=== PATIENT | female | born 1985 | race Caucasian/White ===

== ENCOUNTER → 2018-01-05 | Outpatient (CLI) | payer BC, OTHER ==
--- NOTE | 2018-01-05 08:46 | DIAGNOSTIC IMAGING REPORT ---
[facility]UB CLINICAL HISTORY: Analyzed abdominal pain COMPARISON STUDY: No previous studies for comparison. FINDINGS: There is no pathologic bowel dilatation. There is moderate stool throughout the colon. There are no calcifications suspicious for urinary tract calcifications. IMPRESSION: 1. Moderate stool throughout the colon 2. No evidence of pathologic bowel dilatation Electronically signed by: Ronald Vences M.D. 01/05/2018 8:45 AM Dictated Date/Time: 01/05/2018 8:44 AM
== END | disposition home or self-care (01) ==
LOC: C.RAD 07:59
PROVIDERS: ATTEND Nurse Practitioner Family
DX: R10.84 Generalized abdominal pain (principal); Z88.5 Allergy status to narcotic agent; Z88.2 Allergy status to sulfonamides; Z83.79 Family history of other diseases of the digestive system